=== PATIENT | male | born 1960 | race Caucasian/White ===

== ENCOUNTER 2019-06-03 10:37 | Emergency (ER) | payer MEDICAID ==
--- NOTE | 2019-06-03 11:05 | ER Document Report ---
ED Medical Screen (RME) - General Stated Complaint: NECK PAIN Time Seen by Provider: 06/03/19 11:00 Mode of Arrival: Medic Information source: Patient Notes: 58-year-old male patient resident of [facility] presenting to the emergency department chief complaint of left sided neck swelling and pain. Patient reports he has been seen at [facility] for this, he states that he they told him he may have cancer. Patient reports the neck swelling is rapidly getting worse. He states he is now having difficulty swallowing. Exam: Large mass noted to left side of neck that extends up into patient's face. I have greeted and performed a rapid initial assessment of this patient. A comprehensive ED assessment and evaluation of the patient, analysis of test results and completion of the medical decision making process will be conducted by additional ED providers. I have specifically instructed the patient or family members with the patient to immediately return to any nursing staff should anything change in the patient's condition or with their chief complaint. - Related Data Allergies/Adverse Reactions: No Known Allergies Allergy (Verified 06/03/19 11:00) Physical Exam - Vital signs Vitals: Temp Pulse Resp BP Pulse Ox 98.2 F 83 16 102/67 96 06/03/19 10:56 06/03/19 10:56 06/03/19 10:56 06/03/19 10:56 06/03/19 10:56 Course - Vital Signs Vital signs: Temp Pulse Resp BP Pulse Ox 98.2 F 83 16 102/67 96 06/03/19 10:56 06/03/19 10:56 06/03/19 10:56 06/03/19 10:56 06/03/19 10:56
[2019-06-03 12:08] LABS: ABSOLUTE EOSINOPHILS # (AUTO) 0.1 10^3/uL (0.0-0.6); ABSOLUTE LYMPHOCYTES (AUTO) 1.6 10^3/uL (0.5-4.7); ABSOLUTE MONOCYTES (AUTO) 0.7 10^3/uL (0.1-1.4); ABSOLUTE NEUT (AUTO) 6.8 10^3/uL (1.7-8.2); BASOPHILS % (AUTO) 0.3 % (0-2); EOSINOPHILS % (AUTO) 0.9 % (0-6); HEMATOCRIT 37.5 % (37.9-51.0); HEMOGLOBIN 12.6 g/dL (13.5-17.0); LYMPHOCYTES % (AUTO) 17.1 % (13-45); MEAN CORPUSCULAR HEMOGLOBIN 27.8 pg (27.0-33.4); MEAN CORPUSCULAR HGB CONC 33.4 g/dL (32.0-36.0); MEAN CORPUSCULAR VOLUME 83 fl (80-97); MONOCYTES % (AUTO) 7.2 % (3-13); PLATELET COUNT 326 10^3/uL (150-450); RED BLOOD COUNT 4.52 10^6/uL (4.35-5.55); RED CELL DISTRIBUTION WIDTH 14.3 % (11.5-14.0); SEGMENTED NEUTROPHILS % (AUTO) 74.5 % (42-78); TOTAL CELLS COUNTED % (AUTO) 100 %; WHITE BLOOD COUNT 9.2 10^3/uL (4.0-10.5)
[2019-06-03 12:31] LABS: ALKALINE PHOSPHATASE 73 U/L (38-126); ANION GAP 10 (5-19); ASPARTATE AMINO TRANSFERASE 23 U/L (17-59); BILIRUBIN,DIRECT 0.3 mg/dL (0.0-0.4); BILIRUBIN,TOTAL 0.4 mg/dL (0.2-1.3); BLOOD UREA NITROGEN 10 mg/dL (7-20); CARBON DIOXIDE 27 mmol/L (22-30); CHLORIDE 102 mmol/L (98-107); GLUCOSE 89 mg/dL (75-110); POTASSIUM 4.6 mmol/L (3.6-5.0); TOTAL PROTEIN 7.7 g/dL (6.3-8.2)
--- NOTE | 2019-06-03 14:22 | RADIOLOGY REPORT (SQ) ---
EXAM DESCRIPTION: CT SOFT TISSUE NECK WITH COMPLETED DATE/TIME: 06/03/2019 1:39 pm REASON FOR STUDY: neck mass COMPARISON: None. TECHNIQUE: Post IV contrasted scanning from skull base through lung apices with review of bone, soft tissue and lung windows. Reconstructed coronal and sagittal MPR images reviewed. All images stored on PACS. All CT scanners at this facility use dose modulation, iterative reconstruction, and/or weight based d osing when appropriate to reduce radiation dose to as low as reasonably achievable (ALARA). [facility]: Dose Right [facility]: CareDose [facility]: Dose Right [facility]: Teradose 4D [facility]: KeyMe CONTRAST TYPE AND DOSE: contrast/concentration: Isovue 350.00 mg/ml; Total Contrast Delivered: 75.0 ml; Total Saline Delivered: 44.7 ml RENAL FUNCTION: Creatinine 0.95 RADIATION DOSE: CT Rad equipment meets quality standard of care and radiation dose reduction techniq ues were employed. CTDIvol: 13.3 mGy. DLP: 450 mGy-cm. . LIMITATIONS: None. FINDINGS: There is diffuse tumor throughout the left neck from the thoracic inlet to the submandibul ar triangle. Diffuse tumor is present deep to the sternocleidomastoid muscle, occluding the left int ernal jugular vein, obscuring fat planes in the left neck, obliterating the left submandibular gland. On axial image 55, this tumor measures about 5 x 3 cm in greatest AP and transverse diameter. Ther e are scattered enhancing small blood vessels throughout the tumor from either venous collaterals fro m jugular occlusion or tumor vascularity. Along the left submandibular triangle, tumor obliterate the outlines of the left submandibular gland, with bulky tumor measuring 3.6 x 2.6 cm in size on axial image 52. A left submandibular 2 x 1.5 cm lymph node is present on axial image 51. A left floor of mouth 1 x 0.7 cm lymph node is present on a xial image 52. Tumor in the left neck deviates the airway towards the right. There is tumor abutting the lateral neal perior aspect of the larynx, with a tail of tumor extending into the left vallecular on axial image 4 9 measuring about 2 x 1.8 cm in size. Mild supraglottic airway narrowing at this point. Diffuse adenopathy seen in the left lower neck/supraclavicular region extending into the thoracic inl et. 2 x 1.4 cm lymph node left thoracic inlet axial image 79. There is thrombosis of the left brachiocephalic vein in the upper mediastinum best shown on axial bianka ges 93-100. Adenopathy is present in the upper mediastinum as follows: Prevascular lymph node 2.5 x 1.9 cm axial image 106 Right paratracheal 3 x 1 cm lymph node axial image 105 Left supraclavicular 2 x 1.4 cm lymph node axial image 79. No flow significant stenosis at the left carotid bifurcation is seen. Imaging through the lung apices demonstrates mass or scar in the right upper lobe on axial image 118. Inferior brain parenchyma in the field of view is unremarkable. Bony structures are intact. Right c arotid and jugular are unremarkable. Although the left common carotid artery and carotid bifurcation are encased by tumor, the left carotid bifurcation is patent. 1 cm left intraparotid lymph node axial image 20. Left and right parotid glands, right submandibular gland unremarkable. IMPRESSION: Diffuse tumor throughout the left neck extending into the supraglottic larynx/vallecular region. 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 Scar versus mass right upper lobe. TECHNICAL DOCUMENTATION: JOB ID: [id number] Quality ID # [id number]: Final reports with documentation of one or more dose reduction techniques (e.g., Au tomated exposure control, adjustment of the mA and/or kV according to patient size, use of iterative reconstruction technique) 2010 [employer]- All Rights Reserved Reading location - IP/workstation name: [email or web address]
--- NOTE | 2019-06-03 15:59 | ER Document Report ---
ED General - General Chief Complaint: Neck Pain >24hrs old Stated Complaint: NECK PAIN Time Seen by Provider: 06/03/19 11:00 Mode of Arrival: Medic TRAVEL OUTSIDE OF THE [place] IN LAST 30 DAYS: No - HPI Notes: Patient is a 58-year-old male, a very poor historian. He comes into the emergency department for evaluation of left-sided neck swelling. He initially told me that he had swelling for a week, then he stated for a month. At any rate, he states this become acutely worse over the last several days. He denies any difficulty speaking or swallowing. He denies any unintentional weight loss, states his appetite has been good. He does admit to being a longtime smoker. On further questioning, the patient states he saw some physician in [place]. He believes he may have had a biopsy done, but again he is unsure. He states he has not yet heard what the results of any testing that he had done there are. - Related Data Allergies/Adverse Reactions: No Known Allergies Allergy (Verified 06/03/19 11:00) Home Medications: Donepezil 10 mg daily, duloxetine 60 mg daily, Eliquis 5 mg twice daily, Neurontin 300 mg twice daily, Synthroid 50 mcg daily, Klonopin 0.5 mg at bedtime, nicotine patch, paliperidone 3 mg 3 times daily, Spiriva 1 capsule daily, Symbicort 160/4.5 mcg 2 puffs twice daily, vitamin D Past Medical History - General Information source: Patient, Outside Facility Records - Social History Smoking Status: Current Every Day Smoker Chew tobacco use (# tins/day): No Frequency of alcohol use: None Drug Abuse: None Family History: Reviewed & Not Pertinent Patient has suicidal ideation: No Patient has homicidal ideation: No Pulmonary Medical History: Reports: Hx COPD Neurological Medical History: Reports: Other - Neuropathy Endocrine Medical History: Reports: Hx Hypothyroidism Psychiatric Medical History: Reports: Hx Dementia Review of Systems - Review of Systems Constitutional: No symptoms reported EENT: See HPI Cardiovascular: No symptoms reported Respiratory: No symptoms reported Gastrointestinal: No symptoms reported Genitourinary: No symptoms reported Musculoskeletal: No symptoms reported Skin: No symptoms reported Neurological/Psychological: No symptoms reported Physical Exam - Vital signs Vitals: Temp Pulse Resp BP Pulse Ox 98.2 F 83 16 102/67 96 06/03/19 10:56 06/03/19 10:56 06/03/19 10:56 06/03/19 10:56 06/03/19 10:56 - Notes Notes: This is a 58-year-old male who appears older than his stated age in no acute distress. Head is normocephalic and atraumatic, pupils are equal round, reactive to light. Oral mucosa is moist. I do not see any clear edema of the posterior pharynx, uvula is midline. No clear intraoral swelling. Patient has a significant amount of edema with induration noted on the neck, starting at the inferior margin of the sternocleidomastoid muscle, sternal head, lateral to the inferior aspect of the ear, and tracking up into the submandibular region. There is very mild associated calor. I do not appreciate any fluctuance, there is moderate tenderness. Heart is regular rate and rhythm, lungs are clear all station bilaterally. Abdomen soft, nontender, normoactive bowel sounds. Skin is warm and dry. Posterior calves are nontender. Peripheral pulses are equal. Patient is awake alert, cooperative with examiner. Course - Re-evaluation Re-evalutation: 06/03/19 16:00 Patient presents emergency department for evaluation. He is a very difficult historian with his dementia. I am trying to discern who he is seeing for this mass, as the patient cannot tell me who he saw, nor where he was seen. Gadiel rosas attempting to contact patient's social work administrator. Currently patient is stable, exhibits no difficulty breathing, no dysphagia, we will continue to monitor. 06/03/19 21:49 Jose Werner RN, was able to track down staff from his assisted living facility. We were told adamantly that the patient was being seen at [facility]. I contacted [facility], they have absolutely no record of his being a patient there. We were then able to get hold of his social work administrator. She states that he is being seen at [facility]. I spoke to [facility]. He actually has an appointment on June [address], and follow-up with Dr. Manning and Dr. Reese, ENT and oncology. I spoke with Dr. Brian Rios, ENT oncologist pay station department manager. He states that in the absence of any signs of distress, he believes that outpatient follow-up is reasonable. At this point, patient does have extensive tumor and venous thrombosis, but it does not appear to be changed from the MRI that he had on [facility] in [place]. Findings were explained to the patient, they will be written in his discharge instructions as well. He is to return to the ED with worsening or new concerning symptoms of any sort. - Vital Signs Vital signs: Temp Pulse Resp BP Pulse Ox 98.2 F 83 16 102/67 96 06/03/19 10:56 06/03/19 10:56 06/03/19 10:56 06/03/19 10:56 06/03/19 10:56 - Laboratory Result Diagrams: 06/03/19 11:25 06/03/19 11:25 Laboratory results interpreted by me: 06/03/19 11:25 Hgb 12.6 L Hct 37.5 L RDW 14.3 H - Diagnostic Test Radiology reviewed: Image reviewed, Reports reviewed Radiology results interpreted by me: 06/03/19 21:[address] 06/03/19 11:03 IMPRESSION: Diffuse tumor throughout the left neck extending into the supraglottic larynx/vallecular region. 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 Thrombosed left internal jugular vein and left brachiocephalic vein. Scar versus mass right upper lobe. Discharge - Discharge Clinical Impression: Neck mass Condition: Stable Disposition: HOME, SELF-CARE Additional Instructions: You need to follow-up at the [facility] as scheduled on June 13. At that point you will have further testing, and be seen by specialist for further evaluation of your mass. If you develop any difficulty seeing, speaking, swallowing, breathing, or any other new or concerning symptoms of any sort, please return immediately to the emergency department for evaluation.
[2019-06-03 22:08] VITALS: BP 110/76
== END 2019-06-03 23:07 | disposition home or self-care (01) ==
LOC: ER 10:37
DX: R22.1 Localized swelling, mass and lump, neck (principal); M54.2 Cervicalgia; F17.200 Nicotine dependence, unspecified, uncomplicated; J44.9 Chronic obstructive pulmonary disease, unspecified; F03.90 Unspecified dementia, unspecified severity, without behavioral disturbance, psychotic disturbance, mood disturbance, and anxiety
CPT/HCPCS: 36415; 70491; 80053; 85025; 99284